=== PATIENT | female | born 1945 | race Caucasian/White ===

== ENCOUNTER 2018-08-30 14:50 | Outpatient (CLI) | payer MEDICARE, MEDICAID ==
[~2018-08-30 14:50] MED LIST: ALBU18HF2 INH; ALLO100T PO; ATR0.5NEB NEB; DABI75CA3 PO; DIGO125T PO; DOCU-273; EST1T PO; GABA600T13 PO; GEMF600T5 CORPAK; LACT1CAP73 PO; LEVO50TA8 PO; MONT10TA24 PO; OMEP20TA5 PO; TRAM50TA2 PO; WEL625T
== END 2018-08-30 23:59 | disposition home or self-care (01) ==
LOC: CARD DIAG 14:50
PROVIDERS: ATTEND Internal Medicine Cardiovascular Disease
DX: I08.3 Combined rheumatic disorders of mitral, aortic and tricuspid valves (principal); I10 Essential (primary) hypertension; J45.909 Unspecified asthma, uncomplicated
CPT/HCPCS: 93306